=== PATIENT | female | born 1995 | race African-American/Black ===

== ENCOUNTER 2021-01-15 06:33 | Inpatient (IN) ==
[2021-01-15] MEDS ORDERED: MAGNESIUM SULF RIDER 100 ML IV ONE (07:44)
[2021-01-15] MEDS ORDERED: CALCIUM GLUCONATE 1,000 MG in SODIUM CHLORIDE 0.9% 100 ML IV PRN (07:44)
[2021-01-15 08:14] LABS: Basophils % 0.2 % (0.0-0.8); Eosinophils % 0.2 % (0.00-10.9); Hematocrit 33.5 VOL% (35.7-47.0); Hemoglobin 10.6 GM/DL (12.0-16.0); Immature Granulocytes % 0.9 %; Immature Granulocytes Absolute 0.07 #; Lymphocytes # 1.2 10*3/uL (1.4-4.0); Lymphocytes % 14.4 % (21.3-54.2); Mean Corpuscular HGB Conc 31.6 GM/DL (32-36); Mean Corpuscular Volume 77.7 FL (87-102); Mean Platelet Volume 9.7 FL (9.6-12.0); Monocytes % 6.5 % (1.7-12.7); Neutrophils % 77.8 % (38.7-73.9); Platelet Count 213 T/CUMM (130-400); Red Blood Count 4.31 MC/CUMM (3.8-5.5); Red Cell Distribution Width 14.6 % (9.3-17.3); White Blood Count 8.1 T/CUMM (4-12)
[2021-01-15 08:37] LABS: Alanine Aminotransferase 15 U/L (13-56); Albumin 2.7 G/DL (3.4-5.0); Alkaline Phosphatase 112 U/L (45-117); Aspartate Amino Transferase 15 U/L (0-37); Bilirubin,Total < 0.39 MG/DL (0.2-1.0); Blood Urea Nitrogen 7 MG/DL (7-18); Calcium 8.5 MG/DL (8.5-10.1); Carbon Dioxide 24 MMOL/L (21-32); Estimated Glom Filtration Rate 168 ML/MIN; Glucose 84 MG/DL (74-106); Osmolality,Calculated 273.5 MOS/KG (273-304); Potassium 4.1 MMOL/L (3.5-5.1); Sodium 139 MMOL/L (136-145); Total Protein 6.4 G/DL (6.4-8.2)
[2021-01-15] MEDS: MAGNESIUM SULF DRIP 40 GM/1,000 ML ML IV SCH (08:38)
[2021-01-15] MEDS ORDERED: AMPICILLIN INJ 2,000 MG in SODIUM CHLORIDE 0.9% 100 ML IV ONE (09:00)
[2021-01-15] MEDS: BETAMETH SODIUM PHOS/ACETATE 30 MG/5 ML VIAL IM SCH ×2 (09:02→13:02)
[2021-01-15] MEDS: AMPICILLIN INJ 1,000 MG in SODIUM CHLORIDE 0.9% 100 ML IV SCH ×3 (13:02→21:20)
[2021-01-16] MEDS: AMPICILLIN INJ 1,000 MG in SODIUM CHLORIDE 0.9% 100 ML IV SCH ×6 (01:50→20:54)
[2021-01-16] MEDS: MAGNESIUM SULF DRIP 40 GM/1,000 ML ML IV SCH (07:14)
[2021-01-16] MEDS ORDERED: NIFEdipine 10 MG CAPSULE PO ONE (08:18)
[2021-01-16 08:58] LABS: Basophils % 0.1 % (0.0-0.8); Eosinophils % 0.1 % (0.00-10.9); Hematocrit 34.7 VOL% (35.7-47.0); Immature Granulocytes % 0.6 %; Immature Granulocytes Absolute 0.08 #; Lymphocytes % 7.4 % (21.3-54.2); Mean Corpuscular HGB Conc 31.7 GM/DL (32-36); Mean Corpuscular Volume 77.6 FL (87-102); Mean Platelet Volume 9.5 FL (9.6-12.0); Monocytes % 4.7 % (1.7-12.7); Neutrophils % 87.1 % (38.7-73.9); Platelet Count 232 T/CUMM (130-400); Red Blood Count 4.47 MC/CUMM (3.8-5.5); Red Cell Distribution Width 14.6 % (9.3-17.3); White Blood Count 13.1 T/CUMM (4-12)
[2021-01-16] MEDS: NIFEdipine 10 MG CAPSULE PO SCH ×4 (13:40→20:32)
[2021-01-16] MEDS ORDERED: NIFEdipine 10 MG CAPSULE PO SCH (14:00)
[2021-01-16] MEDS: LACTATED RINGERS 1,000 ML IV SCH (18:56)
[2021-01-17] MEDS: NIFEdipine 10 MG CAPSULE PO SCH ×6 (00:50→20:50)
[2021-01-17] MEDS: AMPICILLIN INJ 1,000 MG in SODIUM CHLORIDE 0.9% 100 ML IV SCH ×2 (00:51→04:51)
[2021-01-17] MEDS: LACTATED RINGERS 1,000 ML IV SCH ×2 (03:20→16:12)
[2021-01-17 05:52] LABS: Basophils % 0.1 % (0.0-0.8); Eosinophils % 0.3 % (0.00-10.9); Hematocrit 28.5 VOL% (35.7-47.0); Hemoglobin 9.1 GM/DL (12.0-16.0); Immature Granulocytes % 0.7 %; Immature Granulocytes Absolute 0.07 #; Lymphocytes # 1.5 10*3/uL (1.4-4.0); Lymphocytes % 14.7 % (21.3-54.2); Mean Corpuscular HGB Conc 31.9 GM/DL (32-36); Mean Corpuscular Volume 78.7 FL (87-102); Mean Platelet Volume 9.8 FL (9.6-12.0); Monocytes % 7.4 % (1.7-12.7); Neutrophils % 76.8 % (38.7-73.9); Platelet Count 205 T/CUMM (130-400); Red Blood Count 3.62 MC/CUMM (3.8-5.5); Red Cell Distribution Width 14.6 % (9.3-17.3); White Blood Count 10.4 T/CUMM (4-12)
[2021-01-17] MEDS ORDERED: AZITHROMYCIN 250 MG TABLET PO ONE (08:36)
[2021-01-17] MEDS ORDERED: OXYTOCIN/LR 0 UNIT/0 ML BAG IV ONE (08:41)
[2021-01-17] MEDS ORDERED: ACETAMINOPHEN 500 MG TABLET PO SCH (09:00)
[2021-01-17] MEDS ORDERED: KETOROLAC 30 MG/1 ML VIAL IV SCH (09:00)
[2021-01-17] MEDS: FERROUS SULFATE 325 MG TABLET PO SCH ×3 (10:10→20:49)
[2021-01-17] MEDS: AMOXICILLIN 500 MG CAPSULE PO SCH ×2 (14:34→21:33)
[2021-01-17] MEDS ORDERED: CITRIC ACID/SODIUM CITRATE 30 ML UDCUP ONE (22:39)
[2021-01-17] MEDS ORDERED: FAMOTIDINE 20 MG/2 ML VIAL IV ONE (22:40)
[2021-01-18] MEDS: NIFEdipine 10 MG CAPSULE PO SCH ×6 (00:51→20:21)
[2021-01-18] MEDS: AMOXICILLIN 500 MG CAPSULE PO SCH ×3 (05:35→21:33)
[2021-01-18 06:01] LABS: Basophils % 0.3 % (0.0-0.8); Eosinophils % 0.5 % (0.00-10.9); Hematocrit 31.7 VOL% (35.7-47.0); Immature Granulocytes % 1.7 %; Immature Granulocytes Absolute 0.13 #; Lymphocytes # 1.7 10*3/uL (1.4-4.0); Lymphocytes % 21.4 % (21.3-54.2); Mean Corpuscular HGB Conc 31.5 GM/DL (32-36); Mean Corpuscular Volume 77.9 FL (87-102); Mean Platelet Volume 10.2 FL (9.6-12.0); Monocytes % 8.6 % (1.7-12.7); Neutrophils % 67.5 % (38.7-73.9); Platelet Count 207 T/CUMM (130-400); Red Blood Count 4.07 MC/CUMM (3.8-5.5); Red Cell Distribution Width 14.6 % (9.3-17.3); White Blood Count 7.8 T/CUMM (4-12)
[2021-01-18] MEDS: FERROUS SULFATE 325 MG TABLET PO SCH ×3 (08:31→20:21)
[2021-01-18] MEDS ORDERED: BETAMETH SODIUM PHOS/ACETATE 30 MG/5 ML VIAL IM ONE (20:00)
[2021-01-18] MEDS ORDERED: MICONAZOLE 2% VAG CREAM 45 GM TUBE VAG SCH (21:00)
[2021-01-19] MEDS: NIFEdipine 10 MG CAPSULE PO SCH ×4 (00:25→12:00)
[2021-01-19] MEDS: AMOXICILLIN 500 MG CAPSULE PO SCH ×2 (06:26→13:32)
[2021-01-19 06:36] LABS: Basophils % 0.1 % (0.0-0.8); Hematocrit 32.1 VOL% (35.7-47.0); Hemoglobin 10.4 GM/DL (12.0-16.0); Immature Granulocytes % 1.5 %; Immature Granulocytes Absolute 0.16 #; Lymphocytes # 0.8 10*3/uL (1.4-4.0); Lymphocytes % 7.3 % (21.3-54.2); Mean Corpuscular HGB Conc 32.4 GM/DL (32-36); Mean Corpuscular Volume 77.2 FL (87-102); Monocytes % 1.8 % (1.7-12.7); Neutrophils % 89.3 % (38.7-73.9); Platelet Count 213 T/CUMM (130-400); Red Blood Count 4.16 MC/CUMM (3.8-5.5); Red Cell Distribution Width 14.5 % (9.3-17.3); White Blood Count 10.8 T/CUMM (4-12)
[2021-01-19] MEDS: FERROUS SULFATE 325 MG TABLET PO SCH (08:31)
== END 2021-01-19 13:50 | disposition home or self-care (01) | DRG 563 ==
LOC: N.LDOUT 06:33 → N.LD 06:34
PROVIDERS: ADMIT Obstetrics & Gynecology; ATTEND Obstetrics & Gynecology